=== PATIENT | male | born 1960 | race Caucasian/White ===

== ENCOUNTER 2023-04-28 08:58 | Emergency (ER) | payer MEDICARE, OTHER ==
[~2023-04-28] VITALS: Ht 188 cm; Wt 83.9 kg
[~2023-04-28 08:58] MED LIST: NO CURRENT MEDS
[2023-04-28 09:17] VITALS: BP 136/89; TEMP 98.1; O2SAT 99
--- NOTE | 2023-04-28 09:21 | NUR ---
PATIENT LEFT WITHOUT BEING SEEN BY DR. PAREKH, THEY DONT WANT TO WAIT LONG FOR ANTIBIOTIC SHOT.
== END 2023-04-28 09:23 | disposition left against medical advice (07) ==
LOC: ER 09:00
DX: N39.0 Urinary tract infection, site not specified (principal); Z53.21 Procedure and treatment not carried out due to patient leaving prior to being seen by health care provider